=== PATIENT | female | born 1990 | race American Indian/Alaskan Native ===

== ENCOUNTER 2016-11-09 11:11 | Emergency (ER) | payer SELFPAY ==
[2016-11-09 11:27] VITALS: BP 113/73
--- NOTE | 2016-11-09 18:47 | Emergency Department Report ---
Entered by ANDREA WILKINS, acting as scribe for LARRY CROSS NP. ED ENT HPI - General Chief complaint: Sore Throat Stated complaint: SORETHROAT Time Seen by Provider: 11/09/16 13:14 Source: patient Mode of arrival: Ambulatory Limitations: No Limitations - History of Present Illness Initial comments: This is a 26 year old female, nontoxic, well nourished in appearance, no acute signs of distress, presents to the ED with c/o sore throat for 3 days. Patient denies any sick contact. Patient describes sore throat as "swallowing razer blades". Patient denies any cough, SOB, chest pain, fever, chills, nausea, vomiting, and . LMP: 10/21/16. Patient denies any drooling or voice changes. Denies difficulty breathing. MD complaint: sore throat -: days(s) (3) Location: throat Severity: moderate Severity scale (0 -10): 4 Quality: other ("swallowing razer blades") Consistency: constant Improves with: none Worsens with: swallowing Associated Symptoms: pain with swallowing, sore throat. denies: fever, cough, gum swelling, toothache, tinnitus, discharge from ear, rhinorrhea - Related Data Previous Rx's Medication Instructions Recorded Last Taken Type Amoxicillin 500 mg PO BID #20 capsule 11/09/16 Unknown Rx Allergies Allergy/AdvReac Type Severity Reaction Status Date / Time No Known Allergies Allergy Unverified 11/09/16 11:22 ED Dental HPI - General Chief complaint: Sore Throat Stated complaint: SORETHROAT Time Seen by Provider: 11/09/16 13:14 Source: patient Mode of arrival: Ambulatory Limitations: No Limitations - History of Present Illness Initial comments: This is a 26 year old female, nontoxic, well nourished in appearance, no acute signs of distress, presents to the ED with c/o sore throat for 3 days. Patient reports unknown cause or any recent travels and describes pain as sharp. Patient denies cough, SOB, chest pain, fever, chills, nausea, vomiting, and . LMP: 10/21/16. MD complaint: sore throat -: days(s) (3) Severity: moderate Quality: sharp Consistency: constant Improves with: none Worsens with: swallowing, eating Dental Associated Symptons: Yes: Sore Throat. No: Headache, Earache, Gum Swelling, Fever - Related Data Previous Rx's Medication Instructions Recorded Last Taken Type Amoxicillin 500 mg PO BID #20 capsule 11/09/16 Unknown Rx Allergies Allergy/AdvReac Type Severity Reaction Status Date / Time No Known Allergies Allergy Unverified 11/09/16 11:22 ED Review of Systems Comment: All other systems reviewed and negative Constitutional: denies: chills, fever Eyes: denies: eye pain, eye discharge, vision change ENT: throat pain. denies: ear pain, dental pain, congestion Respiratory: denies: cough, shortness of breath, wheezing Cardiovascular: denies: chest pain, palpitations Endocrine: no symptoms reported Gastrointestinal: denies: abdominal pain, nausea, vomiting, diarrhea Genitourinary: denies: urgency, dysuria, discharge Musculoskeletal: denies: back pain, joint swelling, arthralgia Skin: denies: rash, lesions Neurological: denies: headache, weakness, numbness, paresthesias Psychiatric: denies: anxiety, depression Hematological/Lymphatic: denies: easy bleeding, easy bruising ED Past Medical Hx - Past Medical History Previous Medical History?: No - Surgical History Past Surgical History?: Yes Additional Surgical History: C SECTION - Social History Smoking Status: Never Smoker Substance Use Type: None - Medications Home Medications: Home Medications Medication Instructions Recorded Confirmed Last Taken Type Amoxicillin 500 mg PO BID #20 capsule 11/09/16 Unknown Rx ED Physical Exam - General Limitations: No Limitations General appearance: alert, in no apparent distress - Head Head exam: Present: atraumatic, normocephalic, normal inspection - Eye Eye exam: Present: normal appearance, PERRL, EOMI. Absent: scleral icterus, conjunctival injection, nystagmus, periorbital swelling, periorbital tenderness Pupils: Present: normal accommodation. Absent: irregular - ENT ENT exam: Present: normal exam, normal orophraynx, mucous membranes moist, TM's normal bilaterally, normal external ear exam - Expanded ENT Exam Expanded Ear exam: Present: normal external inspection Mouth exam: Present: normal external inspection, tongue normal. Absent: drooling, trismus, muffled voice, tongue elevation, laceration Teeth exam: Present: normal inspection Throat exam: Positive: tonsillar erythema, tonsillomegaly (2+), tonsillar exudate (pus in left tonsil present), other (Uvula midline. No tonsilar abscess noted.). Negative: R peritonsillar mass, L peritonsillar mass - Neck Neck exam: Present: normal inspection, full ROM. Absent: tenderness, meningismus, lymphadenopathy, thyromegaly - Respiratory Respiratory exam: Present: normal lung sounds bilaterally. Absent: respiratory distress, wheezes, rales, rhonchi, stridor, chest wall tenderness, accessory muscle use, decreased breath sounds, prolonged expiratory - Cardiovascular Cardiovascular Exam: Present: regular rate, normal rhythm, normal heart sounds. Absent: systolic murmur, diastolic murmur, rubs, gallop - GI/Abdominal GI/Abdominal exam: Present: soft, normal bowel sounds - Rectal Rectal exam: Present: deferred - Extremities Exam Extremities exam: Present: normal inspection, full ROM, normal capillary refill. Absent: tenderness, pedal edema, joint swelling, calf tenderness - Back Exam Back exam: Present: normal inspection, full ROM. Absent: tenderness, CVA tenderness (R), CVA tenderness (L), muscle spasm, paraspinal tenderness, vertebral tenderness, rash noted - Neurological Exam Neurological exam: Present: alert, oriented X3, CN II-XII intact, normal gait, reflexes normal - Psychiatric Psychiatric exam: Present: normal affect, normal mood - Skin Skin exam: Present: warm, dry, intact, normal color. Absent: rash ED Course Vital Signs 11/09/16 11:24 Temperature 98.3 F Pulse Rate 94 H Respiratory 18 Rate Blood Pressure 113/73 O2 Sat by Pulse 95 Oximetry - Reevaluation(s) Reevaluation #1: 11/09/16 14:26 Patient is able to speak in full sentences with no signs of distress. ED Medical Decision Making - Medical Decision Making Ed course: This is a 26-year-old female that presents with exudate tonsillitis Patient was extended by myself. There are no signs of tonsillar abscess. Patient recently treated with amoxicillin for 10 days. Patient was also instructed to follow-up with her primary care doctor in 3-5 days or if symptoms worsen such as drooling, difficulty swallowing, shortness of breath, chest pain , hoarseness to return to emergency room as soon as possible..At time time of discharge, the patient does not seem toxic or ill in appearance. No acute signs of distress noted. Patient agrees to discharge treatment plan of care. No further questions noted by the patient. ED Disposition Clinical Impression: Tonsillitis with exudate Disposition: - TO HOME OR SELFCARE Is pt being admited?: No Does the pt Need Aspirin: No Condition: Stable Instructions: Tonsillitis (ED), Amoxicillin (By mouth) Additional Instructions: follow-up with your primary care doctor in 3-5 days or if symptoms worsen such as drooling, difficulty swallowing, shortness of breath, chest pain, hoarseness to return to emergency room as soon as possible. Take full course of antibiotics that was prescribed to. Prescriptions: Amoxicillin 500 mg PO BID #20 capsule Referrals: PRIMARY CARE, [Primary Care Provider] - 3-5 Days JOSUE CONLEY JR, MD [Staff Physician] - 3-5 Days [facility] [Outside] - 3-5 Days [facility] [Outside] - 3-5 Days Forms: Work/School Release Form(ED) This documentation as recorded by the CLAUDETTE lara PEARL,accurately reflects the service I personally performed and the decisions made by ,LARRY CROSS, NASIM[place].
== END 2016-11-09 14:40 | disposition home or self-care (01) ==
LOC: ED 11:11
DX: J03.90 Acute tonsillitis, unspecified (principal)
CPT/HCPCS: 99282